=== PATIENT | male | born 2000 | race Caucasian/White ===

== ENCOUNTER 2024-07-19 10:03 | Emergency (ER) | payer OTHER, MEDICAID ==
[~2024-07-19] VITALS: Ht 175.3 cm; Wt 107.3 kg
[2024-07-19 10:10] VITALS: TEMP 98.6
[2024-07-19 13:55] VITALS: BP 137/94; PULSE 85; RESP 14; O2SAT 97
== END 2024-07-19 13:52 | disposition home or self-care (01) ==
LOC: ER 10:03
DX: S60.222A Contusion of left hand, initial encounter (principal); V49.9XXA Car occupant (driver) (passenger) injured in unspecified traffic accident, initial encounter; Y93.89 Activity, other specified; Y92.89 Other specified places as the place of occurrence of the external cause; Y99.8 Other external cause status
CPT/HCPCS: 73060; 99283